=== PATIENT | female | born 2000 | race Caucasian/White ===

== ENCOUNTER 2022-07-25 10:06 | Emergency (ER) | payer MEDICAID ==
[~2022-07-25] VITALS: Ht 160 cm; Wt 58.0 kg
[2022-07-25] MEDS ORDERED: IBUPROFEN 600MG TABLET PO STA (11:44)
[2022-07-25 12:00] VITALS: BP 126/76
[2022-07-25 12:15] LABS: CLARITY URINE CLEAR (CLEAR); COLOR URINE YELLOW (YELLOW); KETONES URINE NEGATIVE (NEGATIVE); LEUKOCYTE ESTERASE URINE NEGATIVE (NEGATIVE); NITRITE URINE NEGATIVE (NEGATIVE); OCCULT BLOOD URINE NEGATIVE (NEGATIVE); PROTEIN URINE NEGATIVE (NEGATIVE); SPECIFIC GRAVITY URINE 1.016 (1.005-1.030); UROBILINOGEN URINE 0.2 E.U./dL (0.2-1.0)
[2022-07-25 12:18] LABS: BASOPHILS % 0.2 % (0.0-2.0); EOSINOPHILS % 0.4 % (0.0-5.0); HEMATOCRIT. 45.3 % (36.0-48.0); HEMOGLOBIN. 15.1 g/dL (12.0-16.0); LYMPHOCYTES % 22.7 % (20.0-50.0); MEAN CORPUSCULAR HEMOGLOBIN 28.4 pg (28.0-32.0); MEAN CORPUSCULAR VOLUME 85.5 fL (81.0-99.0); MEAN PLATELET VOLUME 7.8 fl (7.4-10.4); MONOCYTES % 5.1 % (2.0-8.0); NEUTROPHILS % 71.6 % (40.0-76.0); PLATELET 295 x1000/uL (130-400)
[2022-07-25 12:23] LABS: CHLORIDE 105 mEq/L (98-107)
[2022-07-25 12:27] LABS: HCG SCREEN NEGATIVE
== END 2022-07-25 15:56 | disposition home or self-care (01) ==
LOC: ER 10:06
DX: R10.2 Pelvic and perineal pain (principal)
CPT/HCPCS: 36415; 76830; 76856; 80053; 81003; 81025; 84703; 85025; 86850; 86900; 99284